=== PATIENT | female | born 1970 | race Caucasian/White ===

== ENCOUNTER 2016-08-03 19:31 | Emergency (ER) | payer OTHER ==
[~2016-08-03] VITALS: Ht 160 cm; Wt 109.0 kg
[~2016-08-03 19:31] MED LIST: ALBU18HF INHALATION; ALBU8.5H3 INH; AZIT250T94 PO; D-ME473S18 PO; HYDR-3498 PO; IBUP800T25 PO; NAPR-260 PO
[2016-08-03 19:56] VITALS: Ht 160 cm; Wt 109.0 kg
[2016-08-03] MEDS ORDERED: ELIM TOP (20:47)
--- NOTE | 2016-08-03 20:54 | ERD ---
ER Documentation Chief Complaint Date/Time DATE: 08/03/16 TIME: 20:52 Chief Complaint Itch x3 weeks, thinks its scabies? HPI 45-year-old female is here complaining of itchiness all over her body. She states it is worse at night when she is lying her bed and she thinks she may have scabies but denies having any rash. He is afebrile. She has had no new irritants or swelling of her lips or tongue. She has not taken any medications for this. Symptoms have been going on for 3 weeks. She denies pain only severe itchiness. ROS All systems reviewed and are negative except as per history of present illness. Medications Home Meds Active Scripts Permethrin* (Elimite*) 5% Cr, 1 APPLIC TOP ONCE, #60 TUB 1 Refill Prov:RANJIT SEN PA-C 08/03/16 Ibuprofen* (Motrin*) 800 Mg Tab, 800 MG PO Q6, #30 TAB Prov:ROBERT NUNEZ PA-C 12/04/15 Dextromethorphan Hb-Promethazine Hcl (Promethazine DM Syrup) 473 Ml Syrup, 5 ML PO Q6H Y for COUGH, #4 OZ Prov:ROBERT NUNEZ PA-C 12/04/15 Azithromycin* (Zithromax*) 250 Mg Tablet, 250 MG PO .ZPACK DIRECTED, #6 TAB TAKE 500 MG (2 TABS) THE FIRST DAY THEN 250 MG (1 TAB) DAYS 2-5 Prov:ROBERT NUNEZ PA-C 12/04/15 Albuterol Sulfate* (Ventolin HFA*) 18 Gm Hfa.aer.ad, 2 PUFF INHALATION Q4H, #1 INHALER Prov:ROBERT NUNEZ PA-C 12/04/15 Albuterol Sulfate* (Proair HFA*) 8.5 Gm Hfa.aer.ad, 2 PUFF INH Q4, #1 INHALER Prov:ROBERT NUNEZ PA-C 04/10/15 Naproxen* (Naprosyn*) 500 Mg Tablet, 500 MG PO BID Y for PAIN AND/OR INFLAMMATION, #30 TAB Prov:ROBERT NUNEZ PA-C 04/10/15 Hydrocodone Bit-Acetaminophen* ([place]*) 5-325 Mg Tab, 1 TAB PO Q6 Y for PAIN, # 6 TAB Prov:ROBERT NUNEZ PA-C 04/10/15 Allergies Allergies: Coded Allergies: No Known Allergy (Unverified , 04/10/15) PMhx/Soc History of Surgery: No Anesthesia Reaction: No Hx Neurological Disorder: No Hx Respiratory Disorders: Yes (Asthma) Hx Cardiac Disorders: No Hx Psychiatric Problems: No Hx Miscellaneous Medical Probl: No Hx Alcohol Use: No Hx Substance Use: No Hx Tobacco Use: Yes Smoking Status: Never smoker FmHx Family History: No diabetes Physical Exam Vitals Vital Signs Date Time Temp Pulse Resp B/P Pulse Ox O2 Delivery O2 Flow Rate FiO2 08/03/16 19:56 98.6 88 20 162/70 98 Physical Exam General: well developed, well nourished, alert, nontoxic, no distress Head: normocephalic, atraumatic Neck: Supple, nontender, no lymphadenopathy, no midline tenderness Oropharynx: no tonsilar erythema or edema, uvula midline, no exudates, no kissing tonsils, no drooling Respiratory: Clear to auscaultation bilaterally, speaks in full sentences, no use of accesory muscles or labored breathing, no rales, ronchi, or wheezing Cardiovascular: RRR, No murmurs Extremities: moving all extremities normally, normal gait, no edema Skin: no visible rashes Procedures/MDM 45-year-old female presents with pruritus. She is concerned that she has scabies. Her vital signs are within normal limits other than elevated blood pressure 162/70 without any evidence of hypertensive urgency or emergency. Her examination is not concerning for scabies however I did give her a prescription for permethrin in case this is scabies. No signs of anaphylaxis. No respiratory distress. Recommended this patient follow up with her primary care doctor within 48 hours or return to the emergency room for any worsening of symptoms. However this time I do believe there is suitable for outpatient management. I answered all their questions and they agreed with the plan and were discharged home. Departure Diagnosis: Primary Impression: Generalized pruritus Condition: Stable Patient Instructions: Scabies Additional Instructions: Call your primary care doctor TOMORROW for an appointment during the next 1-2 days.See the doctor sooner or return here if your condition worsens before your appointment time. RANJIT SEN PA-C August 03, 2016 20:54
[2016-08-03] MEDS ORDERED: IVER3TAB2 PO (21:21)
== END 2016-08-03 21:15 | disposition home or self-care (01) ==
LOC: FTE 19:31
DX: L29.9 Pruritus, unspecified (principal); J45.909 Unspecified asthma, uncomplicated
CPT/HCPCS: 99283

== ENCOUNTER 2017-11-22 15:38 | Observation (INO) | END 2017-11-23 10:25 | disposition home or self-care (01) ==